=== PATIENT | female | born 2000 | race African-American/Black ===

== ENCOUNTER 2019-02-27 20:12 | Emergency (ER) | payer MEDICAID ==
[~2019-02-27] VITALS: Ht 180.3 cm; Wt 91.0 kg
[2019-02-27] MEDS ORDERED: KETOROLAC 60MG/2ML VIAL IM ONE (23:30)
[2019-02-28 00:45] VITALS: BP 131/70
== END 2019-02-28 00:45 | disposition home or self-care (01) ==
LOC: ER 20:12
DX: M25.562 Pain in left knee (principal); V43.52XA Car driver injured in collision with other type car in traffic accident, initial encounter; Y93.89 Activity, other specified; Y92.488 Other paved roadways as the place of occurrence of the external cause
CPT/HCPCS: 73562; 96372; 99283; J1885